=== PATIENT | male | born 1970 | race Caucasian/White ===

== ENCOUNTER 2021-04-11 12:01 | Emergency (ER) | payer OTHER, SELFPAY ==
[2021-04-11 12:05] VITALS: BP 159/60; PULSE 95; RESP 14; TEMP 36.9; O2SAT 98
--- NOTE | 2021-04-11 12:15 | DI.RAD_ITS ---
Exam(s) XR KNEE RT 3V AP,LAT,VALENTIN EXAM: XR KNEE RT 3V AP,LAT,VALENTIN CLINICAL HISTORY: pain. TECHNIQUE: 2D digital imaging was performed of the right knee. Three views obtained. AP, lateral an d PA tunnel views were obtained. COMPARISON: No exams were available for comparison FINDINGS: BONES: No acute fracture is present. No bony destructive lesion is seen. JOINTS: The knee is normally aligned. No joint effusion is seen. SOFT TISSUE: There is infrapatellar soft tissue swelling. No radiopaque foreign bodies. IMPRESSION: Infrapatellar soft tissue swelling. DATA REPOSITORY: RADIATION DOSE DELIVERED:
--- NOTE | 2021-04-11 12:28 | ED.GENADUL_ITS ---
Discharge Plan Disposition Patient Disposition: HOME Condition: Stable Discharge Details Clinical Impression: Cellulitis of right leg Primary Care Provider: Bebe,Local ED Provider: Ron Xavier Home Meds and New Rx's Prescriptions: New prednisone 20 mg tablet 60 mg PO DAILY 4 Days Qty: 12 RF: 0 amoxicillin-pot clavulanate [Augmentin] 875-125 mg tablet 1 tab PO BID Qty: 14 RF: 0 Continued atorvastatin 20 mg Tablet 20 mg PO DAILY RF: 0 amlodipine 5 mg Tablet 5 mg PO DAILY RF: 0 losartan 25 mg Tablet 25 mg PO DAILY RF: 0 Discharge Instructions Instructions: Cellulitis (ED) Additional Instructions: you have a skin infection of the leg and are being treated with antibiotics and steroids you should be contacted to have an ultrasound done on your leg to evaluate for a blood clot if no improvement within a week have the leg evaluated again if you feel more ill, have worsening pain or redness spreading up the leg or fevers return to the emergency department Medical Decision Making 50 yo male with hx of htn and hld who comes in with cc of right leg redness and swelling. HE is visiting from [place] and states about 2 weeks ago he sustained bee stings to his leg, had swelling that resolved but then his right lower leg became red and swollen. No fevers or severe pain. He has redness of his right lower leg just distal to the right knee and proximal to the ankle on the anterior leg. The leg is swollen compared to the left leg, no crepitus or severe tenderness and intact distal sensation and pulses. The redness is warm to touch. No fluctuance. He can fully range his knee and there is no effusion on exam at bedside. Suspect cellulitis, unlikely septic joint given knee doesn't appear to be involved. He did have some pain today in the knee so will xray and also obtain labs and treat with ceftriaxone and steroids and reassess. mild leukocytosis and inflammatory markers elevated likely from the cellulitis. Already has improvement in erythema with antibiotics and steroids and still full range of motion of the knee, xray shows no effusion though does have soft tissue swelling on the xray inferior to the patella. He is stable and will trial outpatient management. Will also have him return tomorrow to have an ultrasound to evaluate for dvt. He was given strict return precautions to return to the ED if worsening in any way Differential Diagnosis Differential Diagnosis: cellulitis, dvt Imaging Data Radiologic Study: Attestation: I personally reviewed and interpreted this imaging study as follows: Imaging: X-Ray Radiologist's impression: PROCEDURE INFORMATION: Exam: XR Right Knee Exam date and time: 04/11/2021 12:24 PM Age: 50 years old Clinical indication: Other: Knee swelling after bees stings 1 week ago TECHNIQUE: Imaging protocol: XR Right knee. Views: 3 views. COMPARISON: No relevant prior studies available. FINDINGS: Bones/joints: Minimal arthritic changes. No acute fracture. Soft tissues: There is apparent infrapatellar soft tissue swelling. No soft tissue gas. IMPRESSION: Soft tissue swelling only. Lab Data Lab results reviewed: Yes I reviewed the patient's lab results. HPI General Mode of arrival: ambulatory . Date/Time Provider Initiated Documentation: 04/11/21 12:02 . Limitations to Documentation: no limitations . Information obtained by: patient . History of Present Illness 50 year old M presents to the emergency department with the chief complaint of right leg swelling, described as moderate, Patient started experiencing this week(s) (1) and it has been constant. No relieving factors improve symptom(s), No exacerbating factors reported . Patient notes no other symptoms.. Patient did receive the following treatments prior to arrival, none Related Data Home Medications Medication Instructions Recorded Confirmed amlodipine 5 mg PO DAILY 04/11/21 04/11/21 amoxicillin-pot clavulanate 1 tab PO BID #14 tab 04/11/21 [Augmentin] atorvastatin 20 mg PO DAILY 04/11/21 04/11/21 losartan 25 mg PO DAILY 04/11/21 04/11/21 prednisone 60 mg PO DAILY 4 Days #12 tab 04/11/21 Previous Rx's Medication Instructions Recorded amoxicillin-pot clavulanate 1 tab PO BID #14 tab 04/11/21 [Augmentin] prednisone 60 mg PO DAILY 4 Days #12 tab 04/11/21 Allergies Allergy/AdvReac Type Severity Reaction Status Date / Time No Known Allergies Allergy Unverified 04/11/21 12:11 General Stated Complaint: Orthopedic IRVING: 3 Review of Systems All systems reviewed & are unremarkable except as noted in HPI and below Constitutional Constitutional: Denies chills, Denies fever(s) and Denies weakness Cardiovascular Cardiovascular: Denies chest pain and Denies dyspnea Respiratory Respiratory: Denies cough and Denies dyspnea Gastrointestinal Gastrointestinal: Denies abdominal pain, Denies nausea and Denies vomiting Musculoskeletal Musculoskeletal: Denies joint swelling Neurologic Neurologic: Denies weakness PFSH Social History Smoking/Tobacco Use Status: Never Smoking risk assessment performed?: Yes Do you feel safe at home: Yes Do you feel safe in your relationship?: Yes Exam Const General: no acute distress Orientation: alert HENMT Head: normal to inspection Ears: external ears normal General nose exam: external nose normal Mouth: moist mucous membranes Eyes General: appearance normal, both eyes and all related structures Neck Neck: normal visual inspection Resp Effort & Inspection: normal respiratory effort and able to speak in complete sentences Cardio Rate: regular rate Skin General skin exam: elasticity normal Neuro General: patient alert and patient oriented x3 Extrem General: full ROM and capillary refill normal Psych Mental Status: mental status grossly normal Course Vital Signs Vital signs: Vital Signs Temperature 36.9 C 04/11/21 12:05 Pulse 95 H 04/11/21 12:05 Respiratory Rate 14 04/11/21 12:05 Blood Pressure 159/60 H 04/11/21 12:05 Pulse Oximetry 98 04/11/21 12:05 Temperature 36.9 C 04/11/21 12:05 Temperature Source Tympanic 04/11/21 12:05 Pulse 95 H 04/11/21 12:05 Respiratory Rate 14 04/11/21 12:05 Blood Pressure 159/60 H 04/11/21 12:05 Blood Pressure Position Sitting 04/11/21 12:05 Pulse Oximetry 98 04/11/21 12:05 Oxygen Delivery Method Room Air 04/11/21 12:05 Oxygen Flow Rate 0 04/11/21 12:05 Pain Level 10 04/11/21 12:22
[2021-04-11] MEDS: Normal Saline 1,000 ML 1000 ML IV (12:35)
[2021-04-11] MEDS: methylPREDNISolone SUCC 125 MG VIAL IVP (12:40)
[2021-04-11 12:42] LABS: ESR 84 mm/hr (0-20)
[2021-04-11 12:43] LABS: Lactate 1.1 mmol/L (0.6-1.4)
[2021-04-11] MEDS: cefTRIAXone 2 GM/50 ML BAG IVPB (12:45)
[2021-04-11 12:46] LABS: Abs Immature Grans 0.08 10^3/uL (0.0-0.06); Absolute Basophil Count 0.06 10^3/uL (0.0-0.2); Absolute Eosinophil Count 0.18 10^3/uL (0.0-0.7); Absolute Lymphocyte Count 1.05 10^3/uL (1.2-3.4); Absolute Neutrophil Count 10.79 10^3/uL (1.2-6.7); Basophils % 0.5; Eosinophils % 1.4; HCT 45.9 % (40.0-50.0); HGB 14.8 g/dL (13.5-17.5); Immature Grans % 0.6; Lymphocytes % 8.1; MCH 27.2 pg (27.0-33.0); MCHC 32.2 % (32.0-36.0); MCV 84.2 fL (80-95); Monocytes % 6.2; Neutrophils % 83.2; Nucleated RBC 0 %; Platelet Count 451 10^3/uL (130-400); RBC 5.45 10^6/uL (4.36-5.78); RDW 17.3 % (11.8-14.1); RDW-SD 52.9 fL; WBC 12.97 10^3/uL (4.4-10.8)
[2021-04-11 13:04] LABS: ALT 56 U/L (16-63); AST 37 U/L (15-37); Albumin 2.5 g/dL (3.4-5.0); Alkaline Phosphatase 47 U/L (46-116); Anion Gap 8.1 mmol/L (3-11); BUN 30 mg/dL (7-18); Bilirubin, Total 0.5 mg/dL (0.2-1.0); C-Reactive Protein 3.02 mg/dL (0.0-0.3); CO2 24.9 mmol/L (21.0-32.0); CREATININE 1.3 mg/dL (0.70-1.30); Chloride 106 mmol/L (98-107); Estimated GFR 57.97 (mL/min/1.73m2); Glucose 106 mg/dL (74-106); Potassium 4.1 mmol/L (3.5-5.1); Sodium 139 mmol/L (136-145); Total Protein 7.6 g/dL (6.4-8.2)
--- NOTE | 2021-04-11 14:33 | DI.VRAD_ITS ---
PROCEDURE INFORMATION: Exam: XR Right Knee Exam date and time: 04/11/2021 12:24 PM Age: 50 years old Clinical indication: Other: Knee swelling after bees stings 1 week ago TECHNIQUE: Imaging protocol: XR Right knee. Views: 3 views. COMPARISON: No relevant prior studies available. FINDINGS: Bones/joints: Minimal arthritic changes. No acute fracture. Soft tissues: There is apparent infrapatellar soft tissue swelling. No soft tissue gas. IMPRESSION: Soft tissue swelling only. Dictated and Authenticated by: Julian Rai MD. Ordering:ANTOINE Velasquez MD
--- NOTE | 2021-04-11 14:49 | NUR.NOTE ---
Nursing Note: Request for outpt right leg US for right leg swelling, faxed to DI. Hernandez/Jian in ED for Thursday 04/12. Rafaela Sauceda
[2021-04-11 15:05] VITALS: BP 130/83; PULSE 92; RESP 16; TEMP 36.9; O2SAT 96
== END 2021-04-11 15:03 | disposition home or self-care (01) ==
PROVIDERS: Emergency Provider Emergency Medicine
DX: L03.115 Cellulitis of right lower limb (principal); R60.0 Localized edema
CPT/HCPCS: 36415; 73562; 80053; 85652; 96361; 96365; 99284; 83605; 85025; 86140; J2930

== ENCOUNTER 2021-04-12 14:13 | Emergency (ER) | payer SELFPAY ==
[2021-04-12 14:18] VITALS: BP 147/81; PULSE 96; RESP 16; TEMP 36.5; O2SAT 97
--- NOTE | 2021-04-12 14:44 | ED.GENADUL_ITS ---
Discharge Plan Disposition Patient Disposition: HOME Condition: Stable Discharge Details Clinical Impression: Cellulitis of right leg Primary Care Provider: BebeLocal ED Provider: Saida Dalton Home Meds and New Rx's Prescriptions: No Action atorvastatin 20 mg Tablet 20 mg PO DAILY RF: 0 amlodipine 5 mg Tablet 5 mg PO DAILY RF: 0 losartan 25 mg Tablet 25 mg PO DAILY RF: 0 prednisone 20 mg tablet 60 mg PO DAILY 4 Days Qty: 12 RF: 0 amoxicillin-pot clavulanate [Augmentin] 875-125 mg tablet 1 tab PO BID Qty: 14 RF: 0 Discharge Instructions Instructions: Cellulitis (ED) Additional Instructions: Continue taking the medication as prescribed. Please take the 3 tablets in the a.m. of the prednisone. Continue to take the antibiotics once in the morning and once in the evening for the duration of 7 days. Follow up with primary care provider in 3-5 days. Return to ED sooner if any worsening or concerns. Increase oral fluids. Discharge Data Discharge Date/Time-TO BE ENTERED AT DEPARTURE: 04/12/21 15:18 Medical Decision Making 50-year-old male presents to the ER from diagnostic imaging for ultrasound results. Patient was seen here in ER yesterday and diagnosed with cellulitis placed on Augmentin and prednisone. He does noted to have some calf edema and reactive groin lymph node no evidence of DVT on the ultrasound result. He is afebrile nontachycardic upon arrival to the ER department. Will discuss ultrasound result with patient. EXAM: US LOWER EXTREMITY VENOUS RT CLINICAL HISTORY: LT LEG SWELLING, R/O DVBT. TECHNIQUE: Lower extremity venous ultrasound performed using grayscale, color- flow, and spectral Doppler analysis. COMPARISON: No exams were available for comparison FINDINGS: The common femoral, femoral and popliteal veins demonstrate normal compressibility, augmentation, and color Doppler. The posterior tibial veins are patent. No saphenous vein thrombosis or other superficial venous thrombosis is seen. No hematoma or Melton's cyst is seen. A reactive right inguinal lymph node is noted measuring 2.9 cm in length. Edema is noted in the subcutaneous fat of the calf. IMPRESSION: Calf edema and reactive groin lymph node.. No evidence of DVT. Discussed ultrasound results with patient who verbalizes understanding and I did discuss to continue taking the previously prescribed medications. HPI General Mode of arrival: ambulatory . Date/Time Provider Initiated Documentation: 04/12/21 14:34 . Information obtained by: patient, RN notes reviewed and old records reviewed . HPI Narrative: 50-year-old male presents to the ER from diagnostic imaging for ultrasound results. Patient was seen here in ER yesterday and diagnosed with cellulitis placed on Augmentin and prednisone. He does noted to have some calf edema and reactive groin lymph node no evidence of DVT on the ultrasound result. He is afebrile nontachycardic upon arrival to the ER department. Will discuss ultrasound result with patient. Related Data Home Medications Medication Instructions Recorded Confirmed amlodipine 5 mg PO DAILY 04/11/21 04/12/21 amoxicillin-pot clavulanate 1 tab PO BID #14 tab 04/11/21 04/12/21 [Augmentin] atorvastatin 20 mg PO DAILY 04/11/21 04/12/21 losartan 25 mg PO DAILY 04/11/21 04/12/21 prednisone 60 mg PO DAILY 4 Days #12 tab 04/11/21 04/12/21 Previous Rx's Medication Instructions Recorded amoxicillin-pot clavulanate 1 tab PO BID #14 tab 04/11/21 [Augmentin] prednisone 60 mg PO DAILY 4 Days #12 tab 04/11/21 Allergies Allergy/AdvReac Type Severity Reaction Status Date / Time No Known Allergies Allergy Unverified 04/12/21 14:22 General Stated Complaint: Vascular IRVING: 3 Review of Systems All systems reviewed & are unremarkable except as noted in HPI and below PFSH Social History Smoking/Tobacco Use Status: Never Smoking risk assessment performed?: Yes Alcohol Intake: never Drug use: Never Substance use type: does not use Do you feel safe at home: Yes Do you feel safe in your relationship?: Yes Exam Narrative Exam Narrative: Constitutional: Alert and oriented x3. Appears stated age. Normal body habitus. Head: Normocephalic Musculoskeletal: Normal gait, 5/5 strength to all four extremities. Skin: Erythema noted to right lower extremity swelling noted. No significant pitting edema on my exam capillary refill less than 2 sec. Hematologic/Lymphatic: No ecchymosis, Course Vital Signs Vital signs: Vital Signs Temperature 36.5 C 04/12/21 14:18 Pulse 96 H 04/12/21 14:18 Respiratory Rate 16 04/12/21 14:18 Blood Pressure 147/81 H 04/12/21 14:18 Pulse Oximetry 97 04/12/21 14:18 Temperature 36.5 C 04/12/21 14:18 Temperature Source Temporal Artery Scan 04/12/21 14:18 Pulse 96 H 04/12/21 14:18 Respiratory Rate 16 04/12/21 14:18 Respiratory Effort Non-Labored 04/12/21 14:25 Blood Pressure 147/81 H 04/12/21 14:18 Blood Pressure Position Sitting 04/12/21 14:18 Pulse Oximetry 97 04/12/21 14:18 Oxygen Delivery Method Room Air 04/12/21 14:18 Oxygen Flow Rate 0 04/12/21 14:18 Pain Level 7 04/12/21 14:18
[2021-04-12 15:20] VITALS: RESP 18
--- NOTE | 2021-04-12 18:22 | NUR.NOTE ---
referral to cm for pcp
--- NOTE | 2021-04-14 09:56 | PDOC.ERCMPRO ---
- If Service Date Differs Date of service: 04/14/21 Time of Service: 09:56 Care Management Progress Note Lior is seen in the ED for cellulitis. CM is asked to help him establish care with a local PCP but a review of his chart reveals that he is in [place] on vacation from [place]. CM telephones Lior. He reports feeling much better. The swelling of his leg has gone down considerably and he still has 3 or 4 days of amoxicillin to take. Lior states he is on vacation and is currently in [place] with a plan of heading to [place] in the next day or so. If his leg starts to feel worse he knows to go to the nearest emergency room. Otherwise he will follow up with his PCP in [place], [place] next week, as he is returning home on Monday, April 19, 2021.
== END 2021-04-12 15:18 | disposition home or self-care (01) ==
PROVIDERS: Emergency Provider Registered Nurse Emergency
DX: L03.115 Cellulitis of right lower limb (principal)